=== PATIENT | female | born 1985 | race Caucasian/White ===

== ENCOUNTER 2017-10-05 11:32 | Emergency (ER) | payer SELFPAY ==
--- NOTE | 2017-10-05 13:10 | RAD REPORT ---
EXAM DESCRIPTION: US - Abdomen Exam Limited - 10/05/2017 1:01 pm CLINICAL HISTORY: Back pain, abdominal pain COMPARISON: None. FINDINGS: No gallstones, sludge or other abnormalities within the gallbladder lumen. There is no wal l thickening or pericholecystic fluid. No common duct stone or biliary tree dilatation identified. IMPRESSION: Normal gallbladder and biliary tree ultrasound.
--- NOTE | 2017-10-05 13:22 | ER ---
Nurse's Notes [facility] Name: Arabella Tee Age: 32 yrs Sex: Female : 1985 Arrival Date: 10/05/2017 Time: 11:36 Bed 11 Private MD: None, None Diagnosis: Muscle spasm of back;Essential (primary) hypertension Presentation: 10/05 11:37 Presenting complaint: Patient states: right-mid back pain radiating up to right scapula aa5 that began 2 weeks ago. Pt denies known injury. Transition of care: patient was not received from another setting of care. Onset of symptoms was September 2017. Risk Assessment: Do you want to hurt yourself or someone else? Patient reports no desire to harm self or others. Initial Sepsis Screen: Does the patient meet any 2 criteria? No. Patient's initial sepsis screen is negative. Does the patient have a suspected source of infection? No. Patient's initial sepsis screen is negative. Care prior to arrival: None. 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 - Social history:: Smoking status: Patient/guardian denies using tobacco. - Ebola Screening: : No symptoms or risks identified at this time. Vital Signs: 11:38 BP 154 / 93; Pulse 62; Resp 18 S; Temp 99.4(TE); Pulse Ox 100% on R/A; Weight 122.47 kg aa5 (R); Height 5 ft. 6 in. (167.64 cm) (R); Pain 8/10; 11:38 Body Mass Index 43.58 (122.47 kg, 167.64 cm) aa5 ED Course: 11:36 Patient arrived in ED. mr 11:36 None, None is Private Physician. mr 11:38 Triage completed. aa5 11:38 Arm band placed on. aa5 12:38 Olya Connell FNP-C [facility]. snw 12:38 Rick Steinberg MD is Attending Physician. snw 12:42 Patient taken to ultrasound. via wheelchair. hugo 13:00 Ultrasound completed. Patient tolerated well. Patient moved back from ultrasound. hugo 13:02 US Abdomen Limited In Process Unspecified. EDMS 13:25 Val Ledesma, RN is Primary Nurse. dm5 Administered Medications: 13:30 Drug: Flexeril 10 mg Route: PO; dm5 Outcome: 13:22 Discharge ordered by . snw 13:39 Patient left the ED. dm5 Signatures: Dispatcher [employer] Val Sandra, RN RN dm5 Olya Connell, VISUAL MERCHANDISING ASSOCIATE-C VISUAL MERCHANDISING ASSOCIATE-Csnw Angle [place] mr CantorElizabeth RN RN aa5 Mitesh Presley hugo Corrections: (The following items were deleted from the chart) 12:42 11:38 BP 154 / 93; Pulse 62bpm; Resp 68bpm; Spontaneous; Pulse Ox 100% RA; Temp 99.4F aa5 Temporal; 122.47 kg Reported; Height 5 ft. 6 in. Reported; BMI: 43.5; Pain 8/10; aa5
--- NOTE | 2017-10-05 13:23 | EDPHYS ---
Physician Documentation [facility] Name: Arabella Tee Age: 32 yrs Sex: Female : 1985 Arrival Date: 10/05/2017 Time: 11:36 Bed 11 Private MD: None, None ED Physician Rick Steinberg HPI: 10/05 13:28 This 32 yrs old Female presents to ER via Ambulatory with complaints of Back snw Pain. 13:28 The patient presents with pain that is acute, with no known mechanism of injury. The snw symptoms are located in the right scapular area. Onset: The symptoms/episode began/occurred suddenly, 2 week(s) ago, and became persistent. The pain does not radiate. Associated signs and symptoms: The patient has no apparent associated signs or symptoms. The problem was sustained from unknown cause. Modifying factors: The patient symptoms are alleviated by specific position, sitting, the patient symptoms are aggravated by movement. Severity of symptoms: At their worst the symptoms were moderate. The patient has not experienced similar symptoms in the past. The patient has not recently seen a physician, and does not have an established primary care provider. 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 - Social history:: Smoking status: Patient/guardian denies using tobacco. - Ebola Screening: : No symptoms or risks identified at this time. ROS: 13:24 Constitutional: Negative for fever, chills, and weight loss, Eyes: Negative for injury, snw pain, redness, and discharge, ENT: Negative for injury, pain, and discharge, Neck: Negative for injury, pain, and swelling, Cardiovascular: Negative for chest pain, palpitations, and edema, Respiratory: Negative for shortness of breath, cough, wheezing, and pleuritic chest pain, Abdomen/GI: Negative for abdominal pain, nausea, vomiting, diarrhea, and constipation, Back: Negative for injury, + pain MS/Extremity: Negative for injury and deformity, Skin: Negative for injury, rash, and discoloration, Neuro: Negative for headache, weakness, numbness, tingling, and seizure, Psych: Negative for depression, anxiety, suicide ideation, homicidal ideation, and hallucinations. Exam: 13:24 Constitutional: This is a well developed, well nourished patient who is awake, alert, snw and in no acute distress. Head/Face: Normocephalic, atraumatic. Eyes: Pupils equal round and reactive to light, extra-ocular motions intact. Lids and lashes normal. Conjunctiva and sclera are non-icteric and not injected. Cornea within normal limits. Periorbital areas with no swelling, redness, or edema. ENT: Nares patent. No nasal discharge, no septal abnormalities noted. Tympanic membranes are normal and external auditory canals are clear. Oropharynx with no redness, swelling, or masses, exudates, or evidence of obstruction, uvula midline. Mucous membranes moist. Neck: Trachea midline, no thyromegaly or masses palpated, and no cervical lymphadenopathy. Supple, full range of motion without nuchal rigidity, or vertebral point tenderness. No Meningismus. Chest/axilla: Normal chest wall appearance and motion. Nontender with no deformity. No lesions are appreciated. Cardiovascular: Regular rate and rhythm with a normal S1 and S2. No gallops, murmurs, or rubs. Normal PMI, no JVD. No pulse deficits. Respiratory: Lungs have equal breath sounds bilaterally, clear to auscultation and percussion. No rales, rhonchi or wheezes noted. No increased work of breathing, no retractions or nasal flaring. Abdomen/GI: Soft, non-tender, with normal bowel sounds. No distension or tympany. No guarding or rebound. No evidence of tenderness throughout. Skin: Warm, dry with normal turgor. Normal color with no rashes, no lesions, and no evidence of cellulitis. MS/ Extremity: Pulses equal, no cyanosis. Neurovascular intact. Full, normal range of motion. Neuro: Awake and alert, GCS 15, oriented to person, place, time, and situation. Cranial nerves II-XII grossly intact. Motor strength 5/5 in all extremities. Sensory grossly intact. Cerebellar exam normal. Normal gait. Psych: Awake, alert, with orientation to person, place and time. Behavior, mood, and affect are within normal limits. 13:24 Back: pain, that is moderate, of the right scapular area, ROM is painful, with extension, normal spinal alignment noted, CVA tenderness, is absent, muscle spasm, is appreciated in the right scapular area. Vital Signs: 11:38 BP 154 / 93; Pulse 62; Resp 18 S; Temp 99.4(TE); Pulse Ox 100% on R/A; Weight 122.47 kg aa5 (R); Height 5 ft. 6 in. (167.64 cm) (R); Pain 8/10; 11:38 Body Mass Index 43.58 (122.47 kg, 167.64 cm) aa5 MDM: 12:55 Patient medically screened. [facility] 13:25 Data reviewed: vital signs, nurses notes, radiologic studies, ultrasound. Data snw interpreted: Pulse oximetry: on room air is 100 %. Interpretation: normal. Counseling: I had a detailed discussion with the patient and/or guardian regarding: the historical points, exam findings, and any diagnostic results supporting the discharge/admit diagnosis, the presence of at least one elevated blood pressure reading (>120/80) during this emergency department visit, radiology results, the need for outpatient follow up, to return to the emergency department if symptoms worsen or persist or if there are any questions or concerns that arise at home. Special discussion: I have referred the patient to see his PCP for further evaluation of high blood pressure. Based on the history and exam findings, there is no indication for further emergent testing or inpatient evaluation. I discussed with the patient/guardian the need to see the primary care provider for further evaluation of the symptoms. 10/05 12:39 Order name: Urine Culture [facility] 10/05 12:39 Order name: Urine Microscopic Only [facility] 10/05 12:39 Order name: US Abdomen Limited; Complete Time: 13:11 snw 10/05 12:39 Order name: Urine Test (obtain specimen); Complete Time: 13:38 snw 10/05 12:39 Order name: Urine Dipstick-Ancillary (obtain specimen); Complete Time: 13:38 snw 10/05 12:39 Order name: NPO; Complete Time: 13:37 snw Administered Medications: 13:30 Drug: Flexeril 10 mg Route: PO; dm5 Disposition: 10/06 12:05 Co-signature as Attending Physician, Rick Steinberg MD I agree with the assessment and [facility] plan of care. Disposition: 10/05/17 13:22 Discharged to Home. Impression: Muscle spasm of back, Essential (primary) hypertension. - Condition is Stable. - Discharge Instructions: Hypertension, Muscle Cramps and Spasms, Back Injury Prevention, Ozff-al-Huxp, DASH Eating Plan, Heat Therapy, Managing Your Hypertension, Back Exercises. - Prescriptions for Cyclobenzaprine 10 mg Oral Tablet - take 1 tablet by ORAL route every 8 hours As needed; 30 tablet. - Work release form, Medication Reconciliation Form, Thank You Letter, Antibiotic Education, Prescription Opioid Use form. - Follow up: Private Physician; When: 2 - 3 days; Reason: Recheck today's complaints, Continuance of care, Re-evaluation by your physician. Follow up: Emergency Department; When: As needed; Reason: Worsening of condition. Signatures: Dispatcher [employer] Val Bowers, RN RN dm5 Rick Steinberg MD MD cha Therrien, Shelly, EMBOSSING CALENDER OPERATOR-C EMBOSSING CALENDER OPERATOR-Csnw Elizabeth Cantor, RN RN aa5 Corrections: (The following items were deleted from the chart) 10/05 13:31 12:39 Urine Microscopic Only ordered. [facility] 13:32 12:39 Urine Culture ordered. [facility] 13:39 13:22 10/05/2017 13:22 Discharged to Home. Impression: Muscle spasm of back; Essential dm5 (primary) hypertension. Condition is Stable. Forms are Medication Reconciliation Form, Thank You Letter, Antibiotic Education, Prescription Opioid Use. Follow up: Private Physician; When: 2 - 3 days; Reason: Recheck today's complaints, Continuance of care, Re-evaluation by your physician. Follow up: Emergency Department; When: As needed; Reason: Worsening of condition. snw
[2017-10-05] MEDS ORDERED: CYCLOBENZAPRINE 10 MG TAB ONE (13:32)
== END 2017-10-05 13:39 | disposition home or self-care (01) ==
LOC: ER 11:32
DX: M62.830 Muscle spasm of back (principal); I10 Essential (primary) hypertension
CPT/HCPCS: 76705; 99284

== ENCOUNTER 2020-02-17 02:11 | Emergency (ER) | payer SELFPAY ==
--- OUTSIDE RECORDS SUMMARY | 2020-02-17 02:12 | XMS REPORT | Continuity of Care Document ---
:1985 Author Organization [facility] t Address [address] [place] [address] Care Team Providers Name Role Phone Shanda Rivas Attending Clinician Problems This patient has no known problems. Allergies, Adverse Reactions, Alerts This patient has no known allergies or adverse reactions. Medications This patient has no known medications. Procedures This patient has no known procedures. 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
[2020-02-17 03:29] LABS: Absolute Lymphocytes (CBC) 1.6 K/uL (0.7-4.9); Basophils % 0.6 % (0-1.3); Hematocrit 41.5 % (36.0-45.0); Lymphocytes % 16.2 % (15.3-44.8); MPV 9.7 fL (7.6-11.3); RBC Red Blood Cell Count 4.27 M/uL (3.86-4.86)
[2020-02-17] MEDS ORDERED: MORPHINE 4 MG/ML SYR ONE (03:36)
[2020-02-17] MEDS ORDERED: ONDANSETRON 4 MG/2 ML VIAL ONE (03:37)
[2020-02-17] MEDS ORDERED: NA CHLORIDE 0.9% 1,000 ML ONE ×2 (03:37→07:35)
[2020-02-17 03:44] LABS: Albumin 3.9 g/dL (3.4-5.0); Bilirubin Direct 0.8 mg/dL (0-0.2); Bilirubin Total 1.4 mg/dL (0.2-1.0); Potassium 3.6 mmol/L (3.5-5.1); Protein, Total 7.7 g/dL (6.4-8.2)
[2020-02-17 04:42] LABS: Urine Blood NEGATIVE (NEG); Urine Glucose NEGATIVE (NEG); Urine Protein 1+ (NEG); Urine Specific Gravity >1.030 (1.005-1.030); Urine pH 5.5 (5.0-7.0)
--- NOTE | 2020-02-17 09:00 | EDPHYS ---
Physician Documentation [facility] Name: Arabella Tee Age: 34 yrs Sex: Female : 1985 Arrival Date: 02/17/2020 Time: 02:11 Bed 20 Private MD: ED Physician George Reid HPI: 02/16 03:07 This 34 yrs old Female presents to ER via Ambulatory with complaints of Back pkl Pain, Abdominal Pain. 03:07 This 34 yrs old Female presents to ER via Ambulatory with complaints of Back pkl Pain, Abdominal Pain. 03:07 The patient presents with abdominal pain in the upper abdomen. Onset: The pkl symptoms/episode began/occurred just prior to arrival, 8 hour(s) ago. The symptoms radiate to back. Associated signs and symptoms: none. The patient has experienced similar episodes in the past, several times. 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 - Social history:: Smoking status: Patient/guardian denies using. ROS: 03:07 Eyes: Negative for injury, pain, redness, and discharge, ENT: Negative for injury, pkl pain, and discharge, Neck: Negative for injury, pain, and swelling, Cardiovascular: Negative for chest pain, palpitations, and edema, Respiratory: Negative for shortness of breath, cough, wheezing, and pleuritic chest pain. 03:07 Abdomen/GI: Positive for abdominal pain, of the right upper quadrant and left upper quadrant. 03:07 Back: Positive for pain at rest. 03:07 : Negative for urinary symptoms. 03:07 MS/extremity: Negative for acute changes. 03:07 Skin: Negative for rash. 03:07 Neuro: Negative for altered mental status, loss of consciousness. Exam: 03:07 Head/Face: Normocephalic, atraumatic. Eyes: Pupils equal round and reactive to light, pkl extra-ocular motions intact. Lids and lashes normal. Conjunctiva and sclera are non-icteric and not injected. Cornea within normal limits. Periorbital areas with no swelling, redness, or edema. ENT: Nares patent. No nasal discharge, no septal abnormalities noted. Tympanic membranes are normal and external auditory canals are clear. Oropharynx with no redness, swelling, or masses, exudates, or evidence of obstruction, uvula midline. Mucous membranes moist. Neck: Trachea midline, no thyromegaly or masses palpated, and no cervical lymphadenopathy. Supple, full range of motion without nuchal rigidity, or vertebral point tenderness. No Meningismus. Chest/axilla: Normal chest wall appearance and motion. Nontender with no deformity. No lesions are appreciated. Cardiovascular: Regular rate and rhythm with a normal S1 and S2. No gallops, murmurs, or rubs. Normal PMI, no JVD. No pulse deficits. Respiratory: Lungs have equal breath sounds bilaterally, clear to auscultation and percussion. No rales, rhonchi or wheezes noted. No increased work of breathing, no retractions or nasal flaring. 03:07 Abdomen/GI: Bowel sounds: normal, Palpation: soft, mild abdominal tenderness, in the right upper quadrant and left upper quadrant. 03:07 Back: Exam negative for acute changes. 03:07 : Exam negative for acute changes. 03:07 Musculoskeletal/extremity: Exam is negative for acute changes. 03:07 Skin: Exam negative for rash. 03:07 Neuro: Orientation: is normal, Mentation: is normal, Cranial nerves: grossly normal, Motor: is normal. Vital Signs: 02:53 BP 111 / 65; Pulse 72; Resp 18; Temp 98.2; Pulse Ox 100% ; Weight 77.11 kg; Height 5 wh ft. 6 in. (167.64 cm); Pain 9/10; 04:30 BP 110 / 63; Pulse 55; Resp 29; Pulse Ox 99% ; wh 06:00 BP 92 / 52; Pulse 54; Resp 18; Pulse Ox 99% on R/A; wh 07:27 BP 102 / 55; Pulse 46; Resp 17; Pulse Ox 100% on R/A; tw2 08:44 BP 102 / 61; Pulse 41; Resp 17; Pulse Ox 100% on R/A; tw2 02:53 Body Mass Index 27.44 (77.11 kg, 167.64 cm) wh 08:44 provider notified of HR tw2 MDM: 02:56 Patient medically screened. pkl 07:13 Differential diagnosis: cholecystitis, Cholelithiasis, gastritis, gastroesophageal rn reflux disease, non-specific abd pain, pancreatitis, Peptic Ulcer Disease. Data reviewed: vital signs, nurses notes, lab test result(s), radiologic studies, CT scan. Counseling: I had a detailed discussion with the patient and/or guardian regarding: the historical points, exam findings, and any diagnostic results supporting the discharge/admit diagnosis, lab results, radiology results, the need for outpatient follow up, to return to the emergency department if symptoms worsen or persist or if there are any questions or concerns that arise at home. ED course: Pt signed out to me by Dr. Tobar, pending ultrasound, plan was to dc home if U/S doesn't show acute problem. Pt pain resolved, no abd tenderness, no rebound, neg mccoy. Sounds most like poorly functioning gallbladder. Will likely need HIDA scan as outpt. . 08:58 ED course: Spoke with Dr. Pang, states other than small stones, no acute findings. Pt rn without pain, benign abd exam, will dc home per plan with outpt f/u.. 02/16 03:05 Order name: Basic Metabolic Panel; Complete Time: 05:46 pkl 02/16 03:05 Order name: CBC with Diff; Complete Time: 05:46 pkl 02/16 03:05 Order name: Hepatic Function; Complete Time: 05:46 pkl 02/16 03:05 Order name: Lipase; Complete Time: 05:46 pkl 02/16 04:17 Order name: Urine Dipstick--Ancillary (enter results); Complete Time: 05:46 mw2 02/16 04:17 Order name: Urine --Ancillary (enter results); Complete Time: 05:46 mw2 02/16 03:05 Order name: IV Saline Lock; Complete Time: 03:27 pkl 02/16 03:05 Order name: Labs collected and sent; Complete Time: 03:27 pkl 02/16 03:05 Order name: CT Abd/Pelvis - IV Contrast Only pkl 02/16 06:54 Order name: US Abdomen Limited pkl 02/16 03:47 Order name: Urine Dipstick-Ancillary (obtain specimen); Complete Time: 04:21 mw2 02/16 03:47 Order name: Urine Test (obtain specimen); Complete Time: 04:21 mw2 Administered Medications: 03:24 Drug: NS 0.9% 1000 ml Route: IV; Rate: 1000 ml; Site: right antecubital; 03:25 Drug: morphine 4 mg {Note: RASS 0.} Route: IVP; Site: right antecubital; 04:21 Follow up: Response: No adverse reaction; Pain is decreased; RASS: Alert and Calm (0) 03:26 Drug: Zofran (Ondansetron) 4 mg Route: IVP; Site: right antecubital; 04:21 Follow up: Response: No adverse reaction; Nausea is decreased 07:23 Drug: NS 0.9% 1000 ml Route: IV; Rate: 1000 ml; Site: right antecubital; tw2 09:07 Follow up: Response: No adverse reaction; IV Status: Completed infusion; IV Intake: tw2 1000ml Disposition: 02/17/20 08:59 Discharged to Home. Impression: Cholelithiasis. - Condition is Stable. - Discharge Instructions: Cholelithiasis. - Prescriptions for Zofran ODT 4 mg Oral tablet,disintegrating - place 1 tablet by TRANSLINGUAL route every 8 hours As needed; 20 tablet. Tramadol 50 mg Oral Tablet - take 1 tablet by ORAL route every 8 hours as needed; 20 tablet. - Medication Reconciliation Form, Thank You Letter, Antibiotic Education, Prescription Opioid Use, Work release form form. - Follow up: Regis Chaparro MD; When: As needed; Reason: Recheck today's complaints, Re-evaluation by your physician. - Problem is an ongoing problem. - Symptoms have improved. Signatures: Dispatcher [employer] EDPA Omkar Tobar MD MD pkGeorge Tang MD MD rn Wise, Tara, RN RN tw2 [facility] Arley Dent mw2 Corrections: (The following items were deleted from the chart) 09:07 08:59 02/17/2020 08:59 Discharged to Home. Impression: Cholelithiasis. Condition is tw2 Stable. Forms are Medication Reconciliation Form, Thank You Letter, Antibiotic Education, Prescription Opioid Use. Follow up: Regis Chaparro; When: As needed; Reason: Recheck today's complaints, Re-evaluation by your physician. Problem is an ongoing problem. Symptoms have improved. rn
--- NOTE | 2020-02-17 09:00 | ER ---
Nurse's Notes [facility] Name: Arabella Tee Age: 34 yrs Sex: Female : 1985 Arrival Date: 02/17/2020 Time: 02:11 Bed 20 Private MD: Diagnosis: Cholelithiasis Presentation: 02/16 02:53 Chief complaint: Patient states: abdominal pain and back pain that started yesterday at 6:00 pm. Coronavirus screen: Client denies travel out of the [place] in the last 14 days. At this time, the client does not indicate any symptoms associated with coronavirus-19. Ebola Screen: Patient negative for fever greater than or equal to 101.5 degrees Fahrenheit, and additional compatible Ebola Virus Disease symptoms Patient denies exposure to infectious person. Initial Sepsis Screen: Does the patient meet any 2 criteria? No. Patient's initial sepsis screen is negative. Does the patient have a suspected source of infection? Yes: Acute abdominal pain. Risk Assessment: Do you want to hurt yourself or someone else? Patient reports no desire to harm self or others. Onset of symptoms was February 17, 2020. 02:53 Method Of Arrival: Ambulatory 02:53 Acuity: TAMI 3 DIRECTOR OF CURRICULUM AND INSTRUCTION: 09:07 LMP N/A - tw2 Historical: - Allergies: 02:55 Fish; - Home Meds: 02:55 None [Active]; - PMHx: 02:55 None; - PSHx: 02:55 Weight Loss Surgery; - Immunization history:: Adult Immunizations not up to date. - Social history:: Smoking status: Patient/guardian denies using. Screenin:55 Abuse screen: Denies threats or abuse. Denies injuries from another. Nutritional screening: No deficits noted. Tuberculosis screening: No symptoms or risk factors identified. Fall Risk None identified. Assessment: 02:55 General: Appears in no apparent distress. uncomfortable, Behavior is cooperative, wh appropriate for age, fussy. Pain: Complains of pain in epigastric area, right upper quadrant and left upper quadrant Pain radiates to back Pain currently is 9 out of 10 on a pain scale. Quality of pain is described as stabbing, Pain began 1 day ago. Neuro: Level of Consciousness is awake, alert, obeys commands, Oriented to person, place, time, situation, Appropriate for age. Cardiovascular: Capillary refill < 3 seconds. Respiratory: Airway is patent Respiratory effort is even, unlabored, Respiratory pattern is regular, symmetrical. GI: Abdomen is flat, non-distended, Abd is soft Abdomen is tender to palpation in epigastric area, right upper quadrant and left upper quadrant Reports upper abdominal pain. : No signs and/or symptoms were reported regarding the genitourinary system. EENT: No signs and/or symptoms were reported regarding the EENT system. Derm: Skin is intact, is healthy with good turgor, Skin is pink, warm \T\ dry. normal. Musculoskeletal: Circulation, motion, and sensation intact. 04:30 Reassessment: Patient appears in no apparent distress at this time. No changes from previously documented assessment. Patient and/or family updated on plan of care and expected duration. Pain level reassessed. Patient is alert, oriented x 3, equal unlabored respirations, skin warm/dry/pink. Patient states feeling better. Patient states symptoms have improved. 06:08 Reassessment: Patient appears in no apparent distress at this time. Patient and/or family updated on plan of care and expected duration. Pain level reassessed. Patient is alert, oriented x 3, equal unlabored respirations, skin warm/dry/pink. 07:00 Reassessment: Patient appears in no apparent distress at this time. No changes from tw2 previously documented assessment. Patient and/or family updated on plan of care and expected duration. Pain level reassessed. Patient is alert, oriented x 3, equal unlabored respirations, skin warm/dry/pink. 08:44 Reassessment: Patient appears in no apparent distress at this time. No changes from tw2 previously documented assessment. Patient and/or family updated on plan of care and expected duration. Pain level reassessed. Patient is alert, oriented x 3, equal unlabored respirations, skin warm/dry/pink. 09:06 Reassessment: Patient appears in no apparent distress at this time. No changes from tw2 previously documented assessment. Patient and/or family updated on plan of care and expected duration. Pain level reassessed. Patient is alert, oriented x 3, equal unlabored respirations, skin warm/dry/pink. Vital Signs: 02:53 BP 111 / 65; Pulse 72; Resp 18; Temp 98.2; Pulse Ox 100% ; Weight 77.11 kg; Height 5 wh ft. 6 in. (167.64 cm); Pain 9/10; 04:30 BP 110 / 63; Pulse 55; Resp 29; Pulse Ox 99% ; wh 06:00 BP 92 / 52; Pulse 54; Resp 18; Pulse Ox 99% on R/A; wh 07:27 BP 102 / 55; Pulse 46; Resp 17; Pulse Ox 100% on R/A; tw2 08:44 BP 102 / 61; Pulse 41; Resp 17; Pulse Ox 100% on R/A; tw2 02:53 Body Mass Index 27.44 (77.11 kg, 167.64 cm) wh 08:44 provider notified of HR tw2 ED Course: 02:11 Patient arrived in ED. cl3 02:53 Wanda Oviedo is Primary Nurse. wh 02:54 Triage completed. wh 02:55 Patient has correct armband on for positive identification. Bed in low position. Call light in reach. Side rails up X 1. Pulse ox on. NIBP on. 02:56 Omkar Tobar MD is Attending Physician. pkl 02:57 Arm band placed on right wrist. wh 04:46 CT Abd/Pelvis - IV Contrast Only In Process Unspecified. EDMS 07:00 Inserted saline lock: 22 gauge in right antecubital area, using aseptic technique. tw2 ,using aseptic technique. by TANNER Muñoz. 07:02 Attending Physician role handed off by Omkar Tobar MD rn 07:02 George Reid MD is Attending Physician. rn 07:14 Primary Nurse role handed off by Wanda Oviedo tw2 07:14 Sadie Wiseman, RN is Primary Nurse. tw2 07:49 US Abdomen Limited In Process Unspecified. EDMS 08:44 No provider procedures requiring assistance completed. tw2 08:59 Regis Chaparro MD is Referral Physician. rn 09:06 IV discontinued, intact, bleeding controlled, No redness/swelling at site. Pressure tw2 dressing applied. Administered Medications: 03:24 Drug: NS 0.9% 1000 ml Route: IV; Rate: 1000 ml; Site: right antecubital; wh 03:25 Drug: morphine 4 mg {Note: RASS 0.} Route: IVP; Site: right antecubital; wh 04:21 Follow up: Response: No adverse reaction; Pain is decreased; RASS: Alert and Calm (0) 03:26 Drug: Zofran (Ondansetron) 4 mg Route: IVP; Site: right antecubital; 04:21 Follow up: Response: No adverse reaction; Nausea is decreased 07:23 Drug: NS 0.9% 1000 ml Route: IV; Rate: 1000 ml; Site: right antecubital; tw2 09:07 Follow up: Response: No adverse reaction; IV Status: Completed infusion; IV Intake: tw2 1000ml Intake: 09:07 IV: 1000ml; Total: 1000ml. tw2 Outcome: 08:59 Discharge ordered by . rn 09:06 Discharged to home ambulatory. tw2 09:06 Condition: stable 09:06 Discharge instructions given to patient, Instructed on discharge instructions, follow up and referral plans. Demonstrated understanding of instructions, follow-up care, medications, Prescriptions given X 2. 09:07 Patient left the ED. tw2 Signatures: Dispatcher [employer] EDMS Omkar Tobar MD MD pkGeorge Tang MD MD rn Wise, Tara, RN RN tw2 Wanda Oviedo Darryn High cl3 Corrections: (The following items were deleted from the chart) 02:55 02:55 [facility]: [facility] 08:45 08:44 BP 102 / 61; Pulse 41bpm; Resp 17bpm; Pulse Ox 100% RA; tw2 tw2
--- NOTE | 2020-02-17 09:02 | RAD REPORT ---
EXAM DESCRIPTION: US - Abdomen Exam Limited - 02/17/2020 7:49 am CLINICAL HISTORY: ABD PAIN COMPARISON: Abdomen Exam Limited dated 10/05/2017 FINDINGS: The gallbladder demonstrates numerous small gallstones. No pericholecystic fluid or gallbl adder wall thickening. The common bile duct is normal measuring 4 mm. The liver demonstrates no findings of intrahepatic biliary dilatation. IMPRESSION: Cholelithiasis.
--- NOTE | 2020-02-17 11:29 | RAD REPORT ---
EXAM DESCRIPTION: CT ABDOMEN AND PELVIS WITH CONTRAST CLINICAL HISTORY: ABD PAIN COMPARISON: None Available. TECHNIQUE: CT of the abdomen and pelvis performed following IV administration of iodinated contras t. FINDINGS: Lung Bases: The visualized lung bases are clear. Bones: Mild degenerative endplate spondylosis. Abdomen: Liver: The liver has normal size and density. No intrahepatic biliary dilatation. Gallbladder: Mild distention of the gallbladder. No calcified gallstones identified. Spleen, Pancreas, and Adrenal Glands: The spleen, pancreas, and adrenal glands are unremarkable. Kidneys: No hydronephrosis or obstructing calculus. Severe left renal atrophy. Vasculature: The aorta and IVC have normal caliber and position. The portal vein is patent. The pro ximal visceral and renal arteries are patent. Stomach: Postoperative change of the stomach. Other: No free intraperitoneal air. No free fluid or lymphadenopathy. Pelvis: Bladder: Urinary bladder is unremarkable. Bowel: No dilated loops of large or small bowel. Appendix: Normal appendix. Pelvis: Uterus is not enlarged. IMPRESSION: 1. Mild distention of the gallbladder without gallstones identified. If there is concern for biliary disease right upper quadrant ultrasound could provide additional characterization. 2. Severe left renal atrophy. This may be congenital or related to previous infectious or inflammator y insult. This exam was performed according to our departmental dose-optimization program, which includes autom ated exposure control, adjustment of the mA and/or kV according to patient size and/or use of iterati ve reconstruction technique. Electronically signed by: Migel Hector 02/17/2020 5:24 AM CONTROL EQUIPMENT ELECTRICIAN Due to temporary technical issues with the PACS/Fluency reporting system, reports are being signed by the in house radiologist without review as a courtesy to ensure prompt reporting. The interpreting r adiologist is fully responsible for the content of the report.
== END 2020-02-17 09:07 | disposition home or self-care (01) ==
LOC: ER 02:11
DX: K80.20 Calculus of gallbladder without cholecystitis without obstruction (principal); Z91.013 Allergy to seafood
CPT/HCPCS: 36415; 74177; 76705; 80048; 80076; 81003; 81025; 83690; 85025; 96361; 96374; 96375; 99284; J2405; J7030; Q9967

== ENCOUNTER 2021-01-07 02:55 | Emergency (ER) | payer SELFPAY ==
--- OUTSIDE RECORDS SUMMARY | 2021-01-07 02:57 | XMS REPORT | Continuity of Care Document ---
:1985 Author Organization [facility] t Address [address] [place] [address] Care Team Providers Name Role Phone Uli CREWS, Flaca Primary Care Physician Doctor Unassigned, Name Attending Clinician Unavailable Beni CAMARGO Attending Clinician BENI Attending Clinician Unavailable MICHEL Attending Clinician Unavailable Manuel AVILES Attending Clinician Unavailable Aishwarya EDWARDS Attending Clinician Unavailable GEOVANI JOYCE Attending Clinician Unavailable Shanda Rivas Attending Clinician Shanda FRITZ Attending Clinician Unavailable Payers Payer Name Policy Type Policy Number Effective Date Expiration Date S ource Advance Directives Directive Decision Effective Termination Comments Source Date Date Healthcare Agents on N/A Univ ersity FileNameRelationshipHealthcare [facility] Agent Medical RelationshipCommunicationEn[facility] Care [phone] (Home) Problems Condition Condition Condition Status Onset Resolution Last Treating Co mments Source Name Details Category Date Date Treatment Clinician Date HSV-2 HSV-2 Disease Active Univers (herpes (herpes 9-23 ity of simplex simplex 00:00: [place] virus 2) virus 2) 00 Medica l infection infection Bran ch Atypical Atypical Disease Active Unive rs squamous squamous 6-07 ity of cells cells 00:00: [place] cannot cannot 00 Medical exclude exclude Branch high grade high grade squamous squamous intraepith intraepith elial elial lesion on lesion on cytologic cytologic smear of smear of cervix cervix (ASC-H) (ASC-H) Cervical Cervical Disease Active Overview: Un ehsan high risk high risk 5-22 Formattin i ty of HPV (human HPV (human 00:00: g of this [place] papillomav papillomav 00 note Me dical irus) test irus) test might be Branch positive positive different from the original. Per 2017 external records, high risk HPV positive, but 16/18 negative. ASCCP recommend repeat pap 1 year. Pap 2020: NIL, with neg HPV, per ASCCP guideline will need pap in 24 months, which will be 2021 Other Other Disease Active Univers general general 5-16 ity of counseling counseling 00:00: [place] and advice and advice 00 Me dical for for Branch contracept contracept tremaine tremaine management management Over Over Disease Active Univers weight weight 5-16 ity of 00:00: [place] 00 Medical [place] Allergies, Adverse Reactions, Alerts Allergy Allergy Status Severity Reaction(s) Onset Inactive Treating Comm ents Source Name Type Date Date Clinician NO KNOWN Drug Active Univers ALLERGIE Class ity of S [facility] Social History Social Habit Start Date Stop Date Quantity Comments Source Exposure to Not sure [facility] SARS-CoV-2 [facility] (event) [place] Alcohol intake 2020-11-23 2020-11-23 Current University of 00:00:00 00:00:00 non-drinker of [facility] alcohol [place] (finding) Tobacco use and 2018-06-24 2018-06-24 Never used Universit y of exposure 00:00:00 00:00:00 [facility] Sex Assigned At [birth year] Universit y of 00:00:00 00:00:00 [facility] Smoking Status Start Date Stop Date Source Never smoker University [facility] Medical Branch Medications Ordered Filled Start Stop Current Ordering Indication Dosage Frequency Signature Comments Components Source Medication Medication Date Date Medication? Clinician (SIG) Name Name phentermine Yes 37.5mg Take 37.5 Univers 37.5 mg 6-01 mg by ity of capsule 08:41: mouth [place] 42 every Medical morning. Branch phentermine Yes 37.5mg Take 37.5 Univers 37.5 mg 6-01 mg by ity of capsule 08:41: mouth [place] 42 every Medical morning. Branch etonogestre 2020-0 Yes 68mg 68 mg by Un ehsan l 5-29 Subdermal ity of (NEXPLANON) 11:25: route once [place] 68 mg 24 now. Medical implant Branch etonogestre 2020-0 Yes 68mg 68 mg by Un ehsan l 5-29 Subdermal ity of (NEXPLANON) 11:25: route once [place] 68 mg 24 now. Medical implant Branch Immunizations Ordered Filled Immunization Date Status Comments [facility] e Immunization Name Name SARS-COV-2 COVID-19 2020-06-11 Completed Unive rsity of MODERNA VACCINE 00:00:00 [place] [facility] SARS-COV-2 COVID-19 2020-06-11 Completed Unive rsity of MODERNA VACCINE 00:00:00 [place] [facility] SARS-COV-2 COVID-19 2020-05-14 Completed Unive rsity of MODERNA VACCINE 00:00:00 [place] [facility] SARS-COV-2 COVID-19 2020-05-14 Completed Unive rsity of MODERNA VACCINE 00:00:00 [place] [facility] TDAP (ADACEL) 2018-06-24 Completed University of VACCINE 00:00:00 [facility] TDAP (ADACEL) 2018-06-24 Completed University of VACCINE 00:00:00 [facility] Vital Signs Vital Name Observation Time Observation Value Comments Source Systolic blood 2020-11-23 18:45:00 119 mm[Hg] Univer sity of [place] pressure [facility] Diastolic blood 2020-11-23 18:45:00 78 mm[Hg] Unive rsity of [place] pressure [facility] Heart rate 2020-11-23 18:45:00 59 /min [facility] Body height 2020-11-23 18:45:00 167.6 cm [facility] Body weight 2020-11-23 18:45:00 68.765 kg [facility] BMI 2020-11-23 18:45:00 24.47 kg/m2 [facility] Oxygen saturation 2020-11-23 18:45:00 96 /min [facility] in Arterial blood Medical Br anch by Pulse oximetry Procedures Procedure Date / Time Performed Performing Clinician Sour e EXTERNAL PROVIDER - 2020-11-26 05:01:00 Doctor Unassigned, No Un [facility] CARDIOLOGY Name Medical Branch Encounters Start End Encounter Admission Attending Care Care Encounter Source Date/Time Date/Time Type Type Clinicians Facility Department ID 2020-11-26 2020-11-26 Orders Doctor BRIDGETT [id number] Univers 00:00:00 00:00:00 Only Unassigned, NANDINI [id number] ity of [place] [facility] [id number] [place] [phone] [place] [address] Branch 2020-11-23 2020-11-23 Office Beni, [facility] [id number] Univers 13:35:01 14:15:01 Visit Praveen Mendez [id number] ity [facility] [id number] [place] Profess[place] [id number] Wi dical nal 059 Branch [facility] 2020-11-23 2020-11-23 Outpatient R BENI, [facility] [id number] Univers 13:20:00 13:20:00 PRAVEEN brothers o [facility] 2020-11-23 2020-11-23 Outpatient R BENI, [facility] [id number] Univers 13:20:00 13:20:00 PRAVEEN [id number] reenay o [facility] 2020-10-30 2020-10-30 Outpatient R BENI, [facility] [id number] Univers 15:20:00 15:20:00 PRAVEEN [id number] ity o [facility] 2020-10-30 2020-10-30 Outpatient R BENI, [facility] [id number] Univers 15:20:00 15:20:00 PRAVEEN vallesy o [facility] 2020-09-18 2020-09-18 Outpatient R SONG, [facility] [id number] Univers 15:40:00 15:40:00 ELSY ity [facility] 2020-09-18 2020-09-18 Outpatient R [facility] [id number] Univers 15:40:00 15:40:00 [id number] [facility] 2020-08-29 2020-08-29 Outpatient R BENI [facility] [id number] Univers 14:20:00 14:20:00 PRAVEEN [id number] deneen o [facility] 2020-08-24 2020-08-24 Outpatient R BENI [facility] [id number] Univers 09:00:00 09:00:00 PRAVEEN [id number] deneen o [facility] 2020-07-10 2020-07-10 Outpatient R STEFAN [facility] [id number] Univers 08:30:00 08:30:00 VAIBHAV [id number] [facility] 2020-07-10 2020-07-10 Outpatient R STEFAN [facility] [id number] Univers 08:30:00 08:30:00 VAIBHAV [facility] 2020-06-11 2020-06-11 Outpatient R GRACE, [facility] [id number] Univers 17:50:00 17:50:00 SHANA [facility] 2020-05-14 2020-05-14 [facility] [id number] Univers 17:50:00 17:50:00 NEDRA [facility] 2019-07-08 2019-07-[address] [facility] [id number] 10:36:40 11:51:39 Visit Gabby Land CHEMISTRY TUTOR [id number] [facility] [id number] MATERNAL [id number] & CHILD [address] [place] [address] 2019-07-08 2019-07-08 Outpatient R LAM, [facility] [id number] Univers 10:30:00 10:30:00 GABBY [facility] milla [facility] 2019-07-08 2019-07-08 Outpatient R [facility] [id number] Univers 10:00:00 10:00:00 [id number] [facility] Results This patient has no known results.
[2021-01-07] MEDS ORDERED: ONDANSETRON 4 MG/2 ML VIAL ONE (03:36)
[2021-01-07] MEDS ORDERED: MORPHINE 4 MG/ML SYR ONE (03:36)
[2021-01-07] MEDS ORDERED: NA CHLORIDE 0.9% 1,000 ML ONE (03:36)
[2021-01-07] MEDS ORDERED: FAMOTIDINE 20 MG/2 ML VIAL IV ONE (03:37)
[2021-01-07 03:51] LABS: Absolute Lymphocytes (CBC) 1.5 K/uL (0.7-4.9); Hematocrit 41.9 % (36.0-45.0); Lymphocytes % 18.6 % (15.3-44.8); MPV 9.5 fL (7.6-11.3); RBC Red Blood Cell Count 4.28 M/uL (3.86-4.86)
[2021-01-07 04:18] LABS: ALT/SGPT 48 U/L (12-78); AST/SGOT 69 U/L (15-37); Albumin 3.8 g/dL (3.4-5.0); Alkaline Phosphatase 51 U/L (45-117); BUN Blood Urea Nitrogen 9 mg/dL (7-18); Bicarbonate 25 mmol/L (21-32); Bilirubin Direct 0.6 mg/dL (0-0.2); Glucose Level 162 mg/dL (74-106); Lipase 83 U/L (73-393); Potassium 4.2 mmol/L (3.5-5.1); Protein, Total 7.5 g/dL (6.4-8.2); Sodium Level 143 mmol/L (136-145)
--- NOTE | 2021-01-07 04:56 | ER ---
Nurse's Notes [facility] Name: Arabella Tee Age: 35 yrs Sex: Female : 1985 Arrival Date: 01/07/2021 Time: 02:57 Bed 17 Private MD: Diagnosis: Other cholelithiasis without obstruction Presentation: 01/07 03:17 Chief complaint: Patient states: "it's my gallbladder"; Reports diagnosed with lp1 gallstones Feb 2020, unable to follow up due to finances; Tonight, severe epigastric pain that began at 1900, reports vomiting. Coronavirus screen: At this time, the client does not indicate any symptoms associated with coronavirus-19. Ebola Screen: No symptoms or risks identified at this time. Initial Sepsis Screen: Does the patient meet any 2 criteria? No. Patient's initial sepsis screen is negative. Does the patient have a suspected source of infection? No. Patient's initial sepsis screen is negative. Risk Assessment: Do you want to hurt yourself or someone else? Patient reports no desire to harm self or others. Onset of symptoms was January 06, 2021 at 19:00. 03:17 Method Of Arrival: Ambulatory lp1 03:17 Acuity: TAMI 3 lp1 GEOPHYSICAL SUPPORT SPECIALIST: 03:19 LMP N/A - control method, Nexplanon lp1 Historical: - Allergies: 03:19 fish; lp1 - Home Meds: 03:19 None [Active]; lp1 - PMHx: 03:19 Gallstone; lp1 - PSHx: 03:19 Gastric sleeve; lp1 - Immunization history:: Adult Immunizations up to date. - Social history:: Smoking status: Patient denies any tobacco usage or history of. Screenin:17 Abuse screen: Denies threats or abuse. Nutritional screening: No deficits noted. bb Tuberculosis screening: No symptoms or risk factors identified. Fall Risk None identified. Assessment: 03:17 General: Appears uncomfortable, Behavior is cooperative, anxious. Pain: Complains of bb pain in right upper quadrant Pain radiates to back Pain currently is 10 out of 10 on a pain scale. Neuro: Level of Consciousness is awake, alert, obeys commands, Oriented to person, place, time, situation. Cardiovascular: Heart tones S1 S2 present Capillary refill < 3 seconds Patient's skin is warm and dry. Respiratory: Airway is patent Respiratory effort is even, unlabored, Respiratory pattern is regular. GI: Bowel sounds present X 4 quads. Abd is soft X 4 quads Abdomen is tender to palpation in right upper quadrant Reports upper abdominal pain, vomiting. Derm: Skin is pink, warm \\T\\ dry. Musculoskeletal: Circulation, motion, and sensation intact. 03:22 Reassessment: Dr Todd at bedside for pt evaluation. bb 03:54 Reassessment: Patient is alert, oriented x 3, equal unlabored respirations, skin bb warm/dry/pink. US completed pt awaiting results. Vital Signs: 03:17 BP 116 / 68; Pulse 67; Resp 18; Temp 97.5(O); Pulse Ox 100% on R/A; Weight 68.04 kg lp1 (R); Height 5 ft. 6 in. (167.64 cm); Pain 10/10; 03:55 BP 113 / 74; Pulse 60; Resp 16 S; Pulse Ox 100% on R/A; bb 03:17 Body Mass Index 24.21 (68.04 kg, 167.64 cm) lp1 ED Course: 02:57 Patient arrived in ED. bp1 03:04 Alfreda Ziegler, RN is Primary Nurse. kd3 03:17 Lucian Todd MD is Attending Physician. mh7 03:17 Patient has correct armband on for positive identification. Bed in low position. Call bb light in reach. Pulse ox on. NIBP on. 03:19 Triage completed. lp1 03:19 Arm band placed on. lp1 03:30 Initial lab(s) drawn, by tx, sent to lab. Inserted saline lock: 20 gauge in right bb antecubital area, using aseptic technique. Blood collected. 03:45 Lipase Sent. kd3 03:45 Hepatic Function Sent. kd3 03:45 CBC with Diff Sent. kd3 03:45 Basic Metabolic Panel Sent. kd3 03:53 US Abdomen Limited In Process Unspecified. EDMS 04:54 Collin Padilla MD is Referral Physician. mh7 05:14 No provider procedures requiring assistance completed. kd3 05:23 IV discontinued, intact, bleeding controlled, No redness/swelling at site. kd3 Administered Medications: 03:42 Drug: Zofran (Ondansetron) 4 mg Route: IVP; Site: right antecubital; kd3 03:43 Drug: morphine 4 mg Route: IVP; Site: right antecubital; kd3 03:58 Drug: NS 0.9% 1000 ml Route: IV; Rate: 1000 ml; Site: right antecubital; kd3 03:58 Drug: Pepcid (famotidine) 20 mg Route: IVP; Site: right antecubital; kd3 Outcome: 04:55 Discharge ordered by MD. canas 05:23 Discharged to home ambulatory. kd3 05:23 Condition: stable 05:23 Discharge instructions given to patient, Instructed on discharge instructions, follow up and referral plans. medication usage, Demonstrated understanding of instructions, follow-up care, medications, Prescriptions given X 3. 05:23 Patient left the ED. kd3 Signatures: Dispatcher [employer] EDMS Sharon Martínez RN RN bb Raven Lunsford RN RN lp1 Shelly Zapata Maurice, MD MD 7 Alfreda Ziegler RN RN kd3 Corrections: (The following items were deleted from the chart) 03:43 03:43 Pepcid (famotidine) 20 mg IVP in right antecubital kd3 kd3
--- NOTE | 2021-01-07 04:56 | EDPHYS ---
Physician Documentation [facility] Name: Arabella Tee Age: 35 yrs Sex: Female : 1985 Arrival Date: 01/07/2021 Time: 02:57 Bed 17 Private MD: ED Physician Lucian Todd HPI: 01/07 03:26 This 35 yrs old Female presents to ER via Ambulatory with complaints of Abdominal Pain. mh7 03:26 The patient presents with abdominal pain in the right upper quadrant. Onset: The mh7 symptoms/episode began/occurred last night, at 19:00. The symptoms do not radiate. Associated signs and symptoms: Pertinent positives: nausea and vomiting, Pertinent negatives: anorexia, blood in stools, chest pain, constipation, diarrhea, dysuria, fever, headache, hematuria, palpitations, shortness of breath, vaginal discharge, vomiting blood. The symptoms are described as intermittent, vague, waxing/waning. Modifying factors: The symptoms are alleviated by nothing, the symptoms are aggravated by nothing. Severity of pain: At its worst the pain was moderate last night, in the emergency department the pain is unchanged. The patient has experienced similar episodes in the past, several times. 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 - Social history:: Smoking status: Patient denies any tobacco usage or history of. ROS: 03:26 Constitutional: Negative for fever, chills, and weight loss, Eyes: Negative for injury, mh7 pain, redness, and discharge, ENT: Negative for injury, pain, and discharge, Neck: Negative for injury, pain, and swelling, Cardiovascular: Negative for chest pain, palpitations, and edema, Respiratory: Negative for shortness of breath, cough, wheezing, and pleuritic chest pain, Back: Negative for injury and pain, : Negative for injury, bleeding, discharge, and swelling, MS/Extremity: Negative for injury and deformity, Skin: Negative for injury, rash, and discoloration, Neuro: Negative for headache, weakness, numbness, tingling, and seizure, Psych: Negative for depression, anxiety, suicide ideation, homicidal ideation, and hallucinations, Allergy/Immunology: Negative for hives, rash, and allergies, Endocrine: Negative for neck swelling, polydipsia, polyuria, polyphagia, and marked weight changes, Hematologic/Lymphatic: Negative for swollen nodes, abnormal bleeding, and unusual bruising. Exam: 03:26 Head/Face: Normocephalic, atraumatic. Eyes: Pupils equal round and reactive to light, mh7 extra-ocular motions intact. Lids and lashes normal. Conjunctiva and sclera are non-icteric and not injected. Cornea within normal limits. Periorbital areas with no swelling, redness, or edema. Neck: Trachea midline, no thyromegaly or masses palpated, and no cervical lymphadenopathy. Supple, full range of motion without nuchal rigidity, or vertebral point tenderness. No Meningismus. Chest/axilla: Normal chest wall appearance and motion. Nontender with no deformity. No lesions are appreciated. Cardiovascular: Regular rate and rhythm with a normal S1 and S2. No gallops, murmurs, or rubs. Normal PMI, no JVD. No pulse deficits. Respiratory: Lungs have equal breath sounds bilaterally, clear to auscultation and percussion. No rales, rhonchi or wheezes noted. No increased work of breathing, no retractions or nasal flaring. Back: No spinal tenderness. No costovertebral tenderness. Full range of motion. Skin: Warm, dry with normal turgor. Normal color with no rashes, no lesions, and no evidence of cellulitis. MS/ Extremity: Pulses equal, no cyanosis. Neurovascular intact. Full, normal range of motion. Neuro: Awake and alert, GCS 15, oriented to person, place, time, and situation. Cranial nerves II-XII grossly intact. Motor strength 5/5 in all extremities. Sensory grossly intact. Cerebellar exam normal. Normal gait. Psych: Awake, alert, with orientation to person, place and time. Behavior, mood, and affect are within normal limits. 03:26 Constitutional: The patient appears in no acute distress, alert, awake, uncomfortable. 03:26 Abdomen/GI: Inspection: abdomen appears normal, Bowel sounds: normal, in all quadrants, mh7 Palpation: moderate abdominal tenderness, in the right upper quadrant, mass, is not appreciated, rebound tenderness, is not appreciated, voluntary guarding, is not appreciated, involuntary guarding, is not appreciated, no appreciated organomegaly, Rectal exam: the exam is deferred, because of patient request, Indicators: McBurney's point is not tender, Barrera's sign is negative, Rovsing's sign is negative, Obturator sign is negative, Psoas sign is negative, Liver: no appreciated palpable abnormalities, Hernia: not appreciated. Vital Signs: 03:17 BP 116 / 68; Pulse 67; Resp 18; Temp 97.5(O); Pulse Ox 100% on R/A; Weight 68.04 kg lp1 (R); Height 5 ft. 6 in. (167.64 cm); Pain 10/10; 03:55 BP 113 / 74; Pulse 60; Resp 16 S; Pulse Ox 100% on R/A; bb 03:17 Body Mass Index 24.21 (68.04 kg, 167.64 cm) lp1 MDM: 04:53 Differential diagnosis: cholecystitis, Cholelithiasis, gastritis, gastroesophageal 7 reflux disease, non-specific abd pain, pancreatitis, urinary tract infection. Data reviewed: vital signs, nurses notes, old medical records, lab test result(s), CBC, electrolytes, urinalysis, UPT: negative radiologic studies, ultrasound. Data interpreted: Pulse oximetry: on room air is 100 %. Interpretation: normal. Counseling: I had a detailed discussion with the patient and/or guardian regarding: the historical points, exam findings, and any diagnostic results supporting the discharge/admit diagnosis, lab results, radiology results, the need for outpatient follow up, a general surgeon, to return to the emergency department if symptoms worsen or persist or if there are any questions or concerns that arise at home. Response to treatment: the patient's symptoms have resolved after treatment, the patient's blood pressure is in an acceptable range, mental status has returned to baseline, the patient no longer shows bradycardia, the patient is not short of breath, the patient is not tachycardic, the patient's pain is gone, the patient's temperature has normalized. 04:55 Patient medically screened. [facility] 01/07 03:18 Order name: Basic Metabolic Panel; Complete Time: 04:23 [facility] 01/07 03:18 Order name: CBC with Diff; Complete Time: 04:08 [facility] 01/07 03:18 Order name: Hepatic Function; Complete Time: 04:23 [facility] 01/07 03:18 Order name: Lipase; Complete Time: 04:23 [facility] 01/07 03:34 Order name: US Abdomen Limited [facility] 01/07 03:18 Order name: IV Saline Lock; Complete Time: 03:45 [facility] 01/07 03:18 Order name: Labs collected and sent; Complete Time: 03:45 [facility] Administered Medications: 03:42 Drug: Zofran (Ondansetron) 4 mg Route: IVP; Site: right antecubital; kd3 03:43 Drug: morphine 4 mg Route: IVP; Site: right antecubital; kd3 03:58 Drug: NS 0.9% 1000 ml Route: IV; Rate: 1000 ml; Site: right antecubital; kd3 03:58 Drug: Pepcid (famotidine) 20 mg Route: IVP; Site: right antecubital; kd3 Disposition Summary: 01/07/21 04:55 Discharge Ordered Location: Home [facility] Problem: an acute exacerbation [facility] Symptoms: have improved [facility] Condition: Stable [facility] Diagnosis - Other cholelithiasis without obstruction [facility] Followup: [facility] - With: Private Physician - When: 1 - 2 days - Reason: Worsening of condition, Recheck today's complaints, Continuance of care, Re-evaluation by your physician Followup: [facility] - With: Collin Padilla MD - When: 2 - 3 days - Reason: Worsening of condition, Recheck today's complaints Discharge Instructions: - Discharge Summary Sheet [facility] - Cholelithiasis, [id number] [facility] Forms: - Medication Reconciliation Form [facility] - Thank You Letter [facility] - Antibiotic Education [facility] - Prescription Opioid Use [facility] Prescriptions: - ondansetron 4 mg Oral tablet,disintegrating - place 1 tablet by TRANSLINGUAL route every 8 hours As needed; 10 tablet; [facility] Refills: 0, Product Selection Permitted - Tramadol 50 mg Oral Tablet - take 1 tablet by ORAL route every 8 hours as needed; 12 tablet; Refills: 0, [facility] Product Selection Permitted - dicyclomine 20 mg Oral Tablet - take 1 tablet by ORAL route 4 times per day As needed; 20 tablet; Refills: 0, [facility] Product Selection Permitted Signatures: Dispatcher [employer] Raven Ivory RN RN lp1 Lucian Todd MD MD mh7 Alfreda Ziegler RN RN kd3
[2021-01-07 05:38] VITALS: TEMP 97.5; O2SAT 100
[2021-01-07 05:43] VITALS: BP 113/74
--- NOTE | 2021-01-07 14:53 | RAD REPORT ---
EXAM DESCRIPTION: US - Abdomen Exam Limited - 01/07/2021 4:47 am CLINICAL HISTORY: The patient is 35 years old and is Female; RUQ Pain;Abd pain TECHNIQUE: Real-time ultrasound of the right upper quadrant with image documentation. COMPARISON: No relevant prior studies available. FINDINGS: Gallbladder: Distended gallbladder with cholelithiasis. No pericholecystic fluid. Gallbladder wall thickness 1.6 mm. Common bile duct: Common bile duct 4.9 mm in diameter. No stones. No dilation. Pancreas: Unremarkable as visualized. IMPRESSION: Distended gallbladder with cholelithiasis. 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 The interpreting r adiologist is fully responsible for the content of the report.
== END 2021-01-07 05:23 | disposition home or self-care (01) ==
LOC: ER 02:55
DX: K80.80 Other cholelithiasis without obstruction (principal); Z91.013 Allergy to seafood
CPT/HCPCS: 36415; 76705; 80048; 80076; 83690; 85025; 96374; 96375; 99284; J2405; J7030

== ENCOUNTER 2021-09-20 20:27 | Emergency (ER) | payer SELFPAY ==
--- OUTSIDE RECORDS SUMMARY | 2021-09-20 20:31 | XMS REPORT | Continuity of Care Document ---
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 00 note Me dical irus) [...] general 5-16 ity of counseling counseling 00:00: [place] and advice and advice 00 Me dical for for Branch contracept contracept tremaine tremaine management management Over Over Disease Active Univers weight weight 5-16 ity of 00:00: [address] Allergies, Adverse Reactions, Alerts Allergy Allergy Status Severity Reaction(s) Onset Inactive Treating Comm ents Source Name Type Date Date Clinician NO KNOWN Drug Active [facility] ALLERGIE Class ity of S [facility] Social History Social Habit Start Date Stop Date Quantity Comments Source Exposure to 2021-07-09 2021-07-19 Not sure [facility]-CoV-2 00:00:00 09:39:00 [facility] (event) Branch Alcohol intake 2021-07-19 2021-07-19 Current [facility] 00:00:00 00:00:00 non-drinker of [facility] alcohol Branch (finding) Tobacco use and 2018-06-24 2018-06-24 Never used Universit y of exposure 00:00:00 00:00:00 [facility] Sex Assigned At [birth year] Universit y of 00:00:00 00:00:00 [facility] Smoking Status Start Date Stop Date Source Never smoker [facility] Medications Ordered Filled Start Stop Current Ordering Indication Dosage Frequency Signature Comments Components Source Medication Medication Date Date Medication? Clinician (SIG) Name Name etonogestre 2021- No [id number] 68mg Univers L 07-19 ity of (NEXPLANON) 16:30: 21:49 [place] implant 68 00 :00 Medical mg Branch etonogestre 2021- No [id number] 68mg 68 mg, Univers L 07-19 Subdermal, ity of (NEXPLANON) 16:30: 21:49 ONCE NOW, [place] implant 68 00 :00 1 dose, On Med ical mg Fri Branch 07/19/21 at 1130, Routine
Use approved by: ASSESSMENT NURSE PRACTITIONER etonogestre 2021- No [id number] 68mg Univers L 6-11 14-10 ity of (NEXPLANON) 16:30: 21:49 [place] implant 68 00 :00 Medical mg Branch etonogestre 2021- No [id number] 68mg 68 mg, Univers L 6-11 14-10 Subdermal, ity of (NEXPLANON) 16:30: 21:49 ONCE NOW, [place] implant 68 00 :00 1 dose, On Med ical mg [facility] 07/19/21 at 1130, Routine
Use approved by: ASSESSMENT NURSE PRACTITIONER valACYclovi Yes [id number] 500mg Take 1 Univers r (VALTREX) 6-10 tablet by ity of 500 mg 00:00: mouth [place] tablet 00 daily. Medical Branch valACYclovi Yes [id number] 500mg Take 1 Univers r (VALTREX) 6-10 tablet by ity of 500 mg 00:00: mouth [place] tablet 00 daily. Medical Branch phentermine Yes 37.5mg Take 37.5 Univers 37.5 mg 6-01 mg by ity of capsule 08:41: mouth [place] 42 every Medical morning. Branch phentermine Yes 37.5mg Take 37.5 Univers 37.5 mg 6-01 mg by ity of capsule 08:41: mouth [place] 42 every Medical morning. Branch etonogestre Yes 68mg 68 mg by Un ehsan l 5-29 Subdermal ity of (NEXPLANON) 11:25: route once [place] 68 mg 24 now. Medical implant Branch etonogestre Yes 68mg 68 mg by Un ehsan l 5-29 Subdermal ity of (NEXPLANON) 11:25: route once [place] 68 mg 24 now. Medical implant Branch Immunizations Ordered Filled Immunization Date Status Comments [facility] e Immunization Name Name SARS-COV-2 COVID-19 2021-02-05 Completed Unive rsity of MODERNA 0.25ML 00:00:00 [place] Medi john BOOSTER VACCINE Branch SARS-COV-2 COVID-19 2021-02-05 Completed Unive rsity of MODERNA 0.25ML 00:00:00 [place] Medi john BOOSTER VACCINE Branch SARS-COV-2 COVID-19 2020-06-11 Completed Unive rsity of MODERNA VACCINE 00:00:00 [facility] ical Branch SARS-COV-2 COVID-19 2020-06-11 Completed Unive rsity of MODERNA VACCINE 00:00:00 [facility] ical Branch SARS-COV-2 COVID-19 2020-05-14 Completed Unive rsity of MODERNA VACCINE 00:00:00 [facility] ical Branch SARS-COV-2 COVID-19 2020-05-14 Completed Unive rsity of MODERNA VACCINE 00:00:00 [facility] Branch TDAP (ADACEL) 2018-06-24 Completed University of VACCINE 00:00:00 [facility] TDAP (ADACEL) 2018-06-24 Completed University of VACCINE 00:00:00 [facility] Vital Signs Vital Name Observation Time Observation Value Comments Source Systolic blood 2021-07-19 14:40:00 100 mm[Hg] Univer sity of pressure [facility] Diastolic blood 2021-07-19 14:40:00 56 mm[Hg] Unive rsity of pressure [facility] Heart rate 2021-07-19 14:40:00 57 /min [facility] Body temperature 2021-07-19 14:40:00 36.61 [facility] Respiratory rate 2021-07-19 14:40:00 16 /[facility] Body height 2021-07-19 14:40:00 167.6 cm [facility] Body weight 2021-07-19 14:40:00 71.759 kg [facility] BMI 2021-07-19 14:40:00 25.53 kg/m2 [facility] Procedures Procedure Date / Time Performing Clinician Source Performed GC & CHLAMYDIA 2021-07-19 16:27:00 Pedro Fritz [facility] AMPLIFIED [facility] TRICHOMONAS AMPLIFIED 2021-07-19 16:27:00 [facility] AG-AB WITH 2021-07-19 15:47:00 Pedro Fritz Univ ersity [facility] GALV ONLY - [place] 2021-07-19 15:47:00 Pedro Fritz Un iversity [facility] IGG/IGM [facility] POCT TEST 2021-07-19 14:52:00 Pedro Fritz Uni versity [facility] Encounters Start End Encounter Admission Attending Care Care Encounter Source Date/Time Date/Time Type Type Clinicians Facility Department ID 2021-08-02 2021-08-02 Outpatient R LAM [facility] [id number] [facility] 10:15:00 10:15:00 PEDRO ity o f [facility] 2021-07-19 2021-07-19 Office Lam [facility] [id number] [facility] 09:00:00 10:46:11 Visit Pedro Land ASSESSMENT NURSE PRACTITIONER [id number] ity [facility] [id number] [place] as MATERNAL [id number] Med ical & CHILD [address] [place] [address] 2019-07-08 2019-07-08 Office aLm [facility] [id number] 10:36:40 11:51:39 Visit Pedro Land ASSESSMENT NURSE PRACTITIONER [id number] [facility] [id number] MATERNAL [id number] & CHILD [address] [place] [address] Results Test Description Test Time Test Comments Results Result Comments Source GALV ONLY - [place] IGG/IGM 2021-07-20 15:22:20 Test Item Value Reference Range Interpretation Comme nts Syphilis IgG/IgM (test code = Non-reactive Non-reactive 68446-6) CHRISTINE (test code = CHRISTINE) Non-reactive - No serologic evidence of T. pallidum infection. Cannot exclude incubating or early syphilis. Submit a second specimen in 2-4 weeks if syphilis is clinically suspected. Equivocal - Further testing to follow. Reactive - Further testing to follow. Lab Interpretation (test code = Normal 22010-1) [facility] [place] [id number] 15:22:20 Test Item Value Reference Range Interpretation Comments Syphilis IgG/IgM (test Non-reactive Non-reactive code = 57160-5) CHRISTINE (test code = CHRISTINE) Non-reactive - No serologic evidence of T. pallidum infection. Cannot exclude incubating or early syphilis. Submit a second specimen in 2-4 weeks if syphilis is clinically suspected. Equivocal - Further testing to follow. Reactive - Further testing to follow. Lab Interpretation (test Normal code = 96735-5) [facility] 1/2 AG-AB WITH [id number] 06:13:54 Test Item Value Reference Range Interpretation Comments HIV Negative Negative Semi-quantitative (test code = 18263-9) CHRISTINE (test code = Non-reactive for HIV-1 CHRISTINE) antigen and HIV-1/HIV-2 antibodies. ?No laboratory evidence of HIV infection. ?Repeat in 2-4 weeks if acute HIV infection is suspected. [facility] 1/2 AG-AB WITH [id number] 06:13:54 Test Item Value Reference Range Interpretation Comments HIV Negative Negative Semi-quantitative (test code = 98619-4) CHRISTINE (test code = Non-reactive for HIV-1 CHRISTINE) antigen and HIV-1/HIV-2 antibodies. ?No laboratory evidence of HIV infection. ?Repeat in 2-4 weeks if acute HIV infection is suspected. [facility] [id number] 14:52:00 Test Item Value Reference Range Interpretation Comments POCT PREG (test code = 1605) Negative On board controls acceptable with C Yes Line (test code = 3574) POCT PREG LOT # (test code = 3575) POCT PREG TEST DATE (test code = 3576) [facility] [id number] 14:52:00 Test Item Value Reference Range Interpretation Comments POCT PREG (test code = 1605) Negative On board controls acceptable with C Yes Line (test code = 3574) POCT PREG LOT # (test code = 3575) POCT PREG TEST DATE (test code = 3576) [facility]
[2021-09-20 21:33] LABS: Absolute Lymphocytes (CBC) 2.3 K/uL (0.7-4.9); Hematocrit 43.4 % (36.0-45.0); Lymphocytes % 28.5 % (15.3-44.8); MCV 98.6 fL (80-100); RBC Red Blood Cell Count 4.41 M/uL (3.86-4.86)
[2021-09-20 21:53] LABS: Potassium 3.7 mmol/L (3.5-5.1); Troponin High Sensitivity 4.2 pg/mL (<58.9)
--- NOTE | 2021-09-20 22:06 | RAD REPORT ---
EXAM DESCRIPTION: RAD - Chest Single View - 09/20/2021 9:43 pm CLINICAL HISTORY: CHEST PAIN COMPARISON: None TECHNIQUE: AP portable chest image was obtained 09/20/2021 9:43 pm . FINDINGS: Lungs are clear clear of acute infiltrate. Suspected small granuloma superimposed on the i nferior tip of the right scapula. Heart and vasculature are normal. No measurable pleural effusion an d no pneumothorax. No acute bony abnormality seen. No acute aortic findings suspected. IMPRESSION: No acute cardiopulmonary process.
--- NOTE | 2021-09-20 23:26 | ER ---
Nurse's Notes [facility] Name: Arabella Tee Age: 36 yrs Sex: Female : 1985 Arrival Date: 09/20/2021 Time: 20:34 Bed 19 Private MD: Diagnosis: Chest pain, unspecified Presentation: 09/20 20:44 Chief complaint: Patient states: "It started yesterday, it gets kind of hard to breath. tw5 It feels like an ache in my chest and it goes through to my back and mostly on my left side. I can take a deep breath but still feels like I am not getting enough air.". Coronavirus screen: Vaccine status: Patient reports receiving the 2nd dose of the covid vaccine. Moderna. Ebola Screen: Patient negative for fever greater than or equal to 101.5 degrees Fahrenheit, and additional compatible Ebola Virus Disease symptoms Patient denies exposure to infectious person. Patient denies travel to an Ebola-affected area in the 21 days before illness onset. Initial Sepsis Screen: Does the patient meet any 2 criteria? No. Patient's initial sepsis screen is negative. Does the patient have a suspected source of infection? No. Patient's initial sepsis screen is negative. Risk Assessment: Do you want to hurt yourself or someone else? Patient reports no desire to harm self or others. Onset of symptoms was September 19, 2021. 20:44 Method Of Arrival: Ambulatory tw5 20:44 Acuity: TAMI 3 tw5 Triage Assessment: 20:46 General: Appears in no apparent distress. Behavior is calm, cooperative, appropriate tw5 for age. Pain: Complains of pain in chest Pain currently is 4 out of 10 on a pain scale. Quality of pain is described as aching. 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 - Social history:: Smoking status: Patient denies any tobacco usage or history of. Screenin:48 Abuse screen: Denies threats or abuse. Denies injuries from another. Nutritional tw5 screening: No deficits noted. Tuberculosis screening: No symptoms or risk factors identified. Fall Risk None identified. Assessment: 21:00 Reassessment: see triage assessment. Pain: Complains of pain in chest Pain does not sm5 radiate. Pain began 3 hours ago. Cardiovascular: Capillary refill < 3 seconds Patient's skin is warm and dry. Vital Signs: 20:49 BP 107 / 83; Pulse 101; Resp 18; Temp 98.3; Pulse Ox 100% ; Weight 68.04 kg; Height 5 tw5 ft. 6 in. (167.64 cm); Pain 3/10; 23:45 BP 110 / 79; Pulse 88; Resp 19; Pulse Ox 99% on R/A; sm5 20:49 Body Mass Index 24.21 (68.04 kg, 167.64 cm) tw5 ED Course: 20:34 Patient arrived in ED. jj6 20:35 Richardson aGrza DO is Attending Physician. ms3 20:46 Triage completed. tw5 20:46 Arm band placed on. tw5 20:50 No provider procedures requiring assistance completed. tw5 21:00 Delfina Santos, RN is Primary Nurse. sm5 21:45 XRAY Chest (1 view) In Process Unspecified. EDMS 23:25 Aric Mays DO is Referral Physician. ms3 09/21 00:21 Patient has correct armband on for positive identification. Bed in low position. Call sm5 light in reach. Side rails up X2. Client placed on continuous cardiac and pulse oximetry monitoring. NIBP monitoring applied. 00:21 Patient maintains SpO2 saturation greater than 95% on room air. sm5 00:21 IV discontinued, intact, bleeding controlled, No redness/swelling at site. Pressure sm5 dressing applied. Administered Medications: No medications were administered Medication: 00:21 VIS not applicable for this client. sm5 Outcome: 09/20 23:25 Discharge ordered by . ms3 09/21 00:21 Discharged to home ambulatory. sm5 Condition: stable Discharge instructions given to patient, Instructed on discharge instructions, follow up and referral plans. Demonstrated understanding of instructions, follow-up care. 00:21 Patient left the ED. sm5 Signatures: Dispatcher [employer] EDMS Richardson Garza DO DO ms3 Lynne Mireles tw5 Angela Isaac jj6 Delfina Santos, RN RN sm5
--- NOTE | 2021-09-20 23:26 | EDPHYS ---
Physician Documentation [facility] Name: Arabella Tee Age: 36 yrs Sex: Female : 1985 Arrival Date: 09/20/2021 Time: 20:34 Bed 19 Private MD: ED Physician Richardson Garza HPI: 09/20 21:34 This 36 yrs old Female presents to ER via Ambulatory with complaints of Chest Pain, ms3 Chest Tightness, Back Pain. 21:34 The patient or guardian reports chest pain that is located primarily in the substernal ms3 area. The pain does not radiate. Associated signs and symptoms: Pertinent negatives: abdominal pain, diaphoresis, nausea, shortness of breath, vomiting. The chest pain is described as a pressure. Duration: The patient or guardian reports a single episode, that is still ongoing. Modifying factors: The symptoms are alleviated by deep breathing. the symptoms are aggravated by nothing. Severity of pain: in the emergency department the pain is a 3 / 10. 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 - Social history:: Smoking status: Patient denies any tobacco usage or history of. ROS: 21:34 Constitutional: Negative for fever, and chills. Neck: Negative for injury, pain, and ms3 swelling. 21:34 Respiratory: Negative for shortness of breath, cough, wheezing, and pleuritic chest pain, Abdomen/GI: Negative for abdominal pain, nausea, vomiting, diarrhea, and constipation, MS/Extremity: Negative for injury and deformity, Skin: Negative for injury, rash, and discoloration. 21:34 Cardiovascular: Positive for chest pain. 21:34 All other systems are negative. Exam: 20:55 ECG was reviewed by the Attending Physician. ms3 21:34 Constitutional: This is a well developed, well nourished patient who is awake, alert, ms3 and in no acute distress. ENT: Nares patent. No nasal discharge, no septal abnormalities noted. Tympanic membranes are normal and external auditory canals are clear. Oropharynx with no redness, swelling, or masses, exudates, or evidence of obstruction, uvula midline. Mucous membranes moist. Neck: Trachea midline, no cervical lymphadenopathy. Supple, full range of motion without nuchal rigidity, or vertebral point tenderness. No Meningismus. Chest/axilla: Normal chest wall appearance and motion. Nontender with no deformity. Cardiovascular: Regular rate and rhythm with a normal S1 and S2. No gallops, murmurs, or rubs. Normal PMI, no JVD. No pulse deficits. Respiratory: Lungs have equal breath sounds bilaterally, clear to auscultation and percussion. No rales, rhonchi or wheezes noted. No increased work of breathing, no retractions or nasal flaring. Abdomen/GI: Soft, non-tender, with normal bowel sounds. No distension or tympany. No guarding or rebound. No evidence of tenderness throughout. Skin: Warm, dry with normal turgor. Normal color with no rashes, no lesions, and no evidence of cellulitis. MS/ Extremity: Pulses equal, no cyanosis. Neurovascular intact. Full, normal range of motion. Psych: Awake, alert, with orientation to person, place and time. Behavior, mood, and affect are within normal limits. Vital Signs: 20:49 BP 107 / 83; Pulse 101; Resp 18; Temp 98.3; Pulse Ox 100% ; Weight 68.04 kg; Height 5 tw5 ft. 6 in. (167.64 cm); Pain 3/10; 23:45 BP 110 / 79; Pulse 88; Resp 19; Pulse Ox 99% on R/A; sm5 20:49 Body Mass Index 24.21 (68.04 kg, 167.64 cm) tw5 MDM: 21:21 Patient medically screened. ms3 21:34 Differential diagnosis: abnormal EKG, acute myocardial infarction, chest wall pain, ms3 pneumonia, pneumothorax, pulmonary embolus. 23:25 HEART Score: History: Slightly Suspicious (0), ECG: Normal (0), Age: < or = 45 years ms3 (0), Risk Factors: No Risk Factors Known (0), Troponin: < or = 1 x Normal Limit (0), Total Score = 0. Data reviewed: vital signs, nurses notes, lab test result(s), EKG, radiologic studies, and as a result, I will discharge patient. Counseling: I had a detailed discussion with the patient and/or guardian regarding: the historical points, exam findings, and any diagnostic results supporting the discharge/admit diagnosis, lab results, radiology results, the need for outpatient follow up. Special discussion: Based on the patient's history, exam, and Dx evaluation, there is no indication for emergent intervention or inpatient Tx. It is understood by the patient/guardian that if the Sx's persist or worsen they need to return immediately for re-evaluation. 09/20 20:48 Order name: Basic Metabolic Panel; Complete Time: 22:15 09/20 20:48 Order name: CBC with Diff; Complete Time: 22:15 09/20 20:48 Order name: Troponin HS; Complete Time: 22:15 09/20 20:48 Order name: XRAY Chest (1 view); Complete Time: 22:15 09/20 20:48 Order name: EKG; Complete Time: 20:50 09/20 21:36 Order name: D-Dimer; Complete Time: 23:01 ms3 09/20 20:48 Order name: Cardiac monitoring; Complete Time: 21:22 09/20 20:48 Order name: EKG - Nurse/Tech; Complete Time: 21:04 09/20 20:48 Order name: IV Saline Lock; Complete Time: 21:23 09/20 20:48 Order name: Labs collected and sent; Complete Time: 21:23 09/20 20:48 Order name: O2 Per Protocol; Complete Time: 21:09/20 20:48 Order name: O2 Sat Monitoring; Complete Time: 21: EC:55 Rate is 72 beats/min. Rhythm is regular. QRS [place] is Normal. Clinical impression: ms3 Normal ECG. Interpreted by me. Reviewed by me. Administered Medications: No medications were administered Disposition Summary: 09/20/21 23:25 Discharge Ordered Location: Home ms3 Condition: Stable ms3 Diagnosis - Chest pain, unspecified ms3 Followup: ms3 - With: Aric Mays, DO - When: 2 - 3 days - Reason: Recheck today's complaints Discharge Instructions: - Discharge Summary Sheet ms3 - Nonspecific Chest Pain, Adult ms3 Forms: - Medication Reconciliation Form ms3 - Thank You Letter ms3 - Antibiotic Education ms3 - Prescription Opioid Use ms3 Signatures: Dispatcher [employer] EDRichardson Medina DO DO ms3 Lynne Mireles tw5
[2021-09-21 01:27] VITALS: TEMP 98.3
[2021-09-21 01:29] VITALS: BP 110/79; O2SAT 99
--- NOTE | 2021-09-24 08:26 | EKG ---
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
== END 2021-09-21 00:21 | disposition home or self-care (01) ==
LOC: ER 20:27
DX: R07.89 Other chest pain (principal); Z91.013 Allergy to seafood
CPT/HCPCS: 36415; 71045; 80048; 84484; 85025; 85379; 93005; 99284